=== PATIENT | female | born 1935 | race Caucasian/White ===

== ENCOUNTER → 2016-03-18 | Outpatient (CLI) | payer OTHER, BC ==
[2016-03-18 13:34] LABS: ESTIMATED AVERAGE GLUCOSE 143 mg/dl; HA1C FLAG Normal (Normal)
[2016-03-18 13:44] LABS: BLOOD UREA NITROGEN 21 mg/dl (7-18); CALCIUM 9.2 mg/dl (8.5-10.1); CARBON DIOXIDE 30 mmol/L (21-32); CHLORIDE 102 mmol/L (98-107); GLUCOSE 97 mg/dl (70-99); POTASSIUM 4.2 mmol/L (3.5-5.1); SODIUM 140 mmol/L (136-145)
== END | disposition home or self-care (01) ==
LOC: C.LABMFLN 07:34
PROVIDERS: ATTEND Family Medicine
DX: N18.9 Chronic kidney disease, unspecified (principal); E11.22 Type 2 diabetes mellitus with diabetic chronic kidney disease

== ENCOUNTER → 2016-06-23 | Outpatient (CLI) | payer OTHER, BC ==
--- NOTE | 2016-06-23 11:14 | DIAGNOSTIC IMAGING REPORT ---
PET/CT SKULL-THIGH CLINICAL HISTORY: ESOPHAGEAL CANCER COMPARISON STUDY: Outside PET scan dated 07/23/2015 FINDINGS: The patient was injected with 15.6 mCi of F 18 labeled FDG. Findings standard induction phase, PET/CT scanning was performed from the skull base to the upper thigh region. Within the neck, uptake is felt to be physiologic. Within the thorax, there is no pathologic mediastinal, hilar, or axillary becki activity. The patient appears to be status post a prior esophagectomy and gastric pull-up. There is stable increased activity at the level of the gastric antrum. There is no pathologic parenchymal activity. There is indeterminate 8 mm mixed solid and groundglass left apical pulmonary nodule. The solid component appears slightly larger than on prior studies dating back to May 2014. A low-grade carcinoma can therefore not be excluded. There is a stable right lower lobe 11 x 5 mm ovoid nodule. This second nodule is felt to be of very low suspicion. Within the abdomen, there is physiologic urinary tract and bowel activity. There is no pathologic becki activity. A pessary is visualized. Its there is no pathologic hepatic or adrenal activity. There is no pathologic skeletal activity. IMPRESSION: 1. Postsurgical changes of esophagectomy and gastric colon. 2. No evidence of pathologic becki activity 3. Stable mild increased activity at the level of the gastric antrum 4. Indeterminate 8 mm mixed solid and groundglass left apical pulmonary nodule. The solid component appears larger than in 2015. A small bronchogenic carcinoma is the diagnosis of exclusion. Electronically signed by: Alex Waddell M.D. 06/23/2016 11:13 AM Dictated Date/Time: 06/23/2016 11:02 AM
== END | disposition home or self-care (01) ==
LOC: C.PET 07:58
PROVIDERS: ATTEND Family Medicine
DX: C15.9 Malignant neoplasm of esophagus, unspecified (principal); R91.8 Other nonspecific abnormal finding of lung field

== ENCOUNTER → 2016-06-29 | Outpatient (CLI) | payer OTHER, BC ==
[~2016-06-29] MED LIST: REGADENOSON 0.4 MG/5 ML SYR ONE
--- NOTE | 2016-06-29 23:17 | MYOCARDIAL PERFUSION SCAN ---
ONE-DAY NUCLEAR MEDICINE TECHNETIUM-99M CARDIOLITE MYOCARDIAL PERFUSION SCAN CLINICAL HISTORY: The patient has a known history of coronary artery disease having undergone bypass surgery in 1990. This stress test is being performed because of a chest pain syndrome and exertional dyspnea. COMPARISON: None. TECHNIQUE: For the stress portion of the study, 33.7 mCi of Technetium 99 m Cardiolite IV was injected at 11:40 a.m. on 06/29/2016. Thirty minutes following the injection, imaging of the heart was performed in multiple projection. For the rest portion of the study, 10.6 mCi of Technetium 99 m Cardiolite was injected IV at 9:30 a.m. One hour following the injection, imaging of the heart was performed in the same projections. For the stress portion of the study, 0.4 mg of Lexiscan was injected intravenously as per protocol. The patient did not experience chest discomfort nor EKG changes. Following the study, the patient was hemodynamically stable without complaints. FINDINGS: The short axis, vertical long axis, horizontal long axis images were reviewed in detail. There is a small fixed defect in the proximal and mid inferior wall which is present at both stress and rest. This likely represents an old myocardial infarction (but diaphragmatic attenuation could not be fully excluded). Left ventricular systolic function is hyperdynamic with an ejection fraction of greater than 70%, but there are no obvious wall motion abnormalities. IMPRESSION: 1. 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 2. No Lexiscan induced chest pain. 3. No Lexiscan induced EKG changes. 4. Hyperdynamic left ventricular systolic function with an ejection fraction greater than 70% and no obvious wall motion abnormalities.
== END | disposition home or self-care (01) ==
LOC: C.NUCL 08:49
PROVIDERS: ATTEND Family Medicine
DX: I25.10 Atherosclerotic heart disease of native coronary artery without angina pectoris (principal); R94.31 Abnormal electrocardiogram [ECG] [EKG]

== ENCOUNTER → 2016-09-22 | Outpatient (CLI) | payer OTHER, BC ==
[2016-09-22 13:54] LABS: ESTIMATED AVERAGE GLUCOSE 140 mg/dl; HA1C FLAG Normal (Normal)
== END | disposition home or self-care (01) ==
LOC: C.LABMFLN 11:18
PROVIDERS: ATTEND Family Medicine
DX: E11.9 Type 2 diabetes mellitus without complications (principal)

== ENCOUNTER → 2016-09-28 | Outpatient (CLI) | payer OTHER, BC ==
--- NOTE | 2016-09-28 13:21 | DIAGNOSTIC IMAGING REPORT ---
(CHEST) THORAX WITHOUT CLINICAL HISTORY: 81 years-old Female presenting with R91.8 Multiple pulmonary nodules. TECHNIQUE: Multidetector CT imaging of the chest was performed without the use of intravenous contrast. IV contrast: None. A dose lowering technique was used consistent with the principles of ALARA (as low as reasonably achievable). COMPARISON: 06/17/2016. CT DOSE (mGy.cm): The estimated cumulative dose is 216.53 mGy.cm. 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 On soft tissue windows, calcified nodule in the right thyroid lobe. Subcentimeter mediastinal lymph nodes decreased in prominence since the prior exam, likely related to reactive. Evaluation of the nancy limited without intravenous contrast. Atherosclerosis of aortic arch and origins of the major branch vessels. Normal heart size. Coronary artery and aortic valve calcification. Evidence of coronary artery bypass. No pericardial or pleural effusion. Post surgical changes of esophagectomy with gastric pull-through. Coarse parenchymal calcification in the liver, nonspecific and likely indicating prior injury. Cholecystectomy clips. Hepatic arterial atherosclerotic disease. Prominent splenic atherosclerosis. On lung windows, right middle lobe solid 4 mm ulnar nodule, previously 4 mm (series 4 image 194) series. Right upper lobe solid 3 mm pulmonary nodule, previously 3 mm (series 4 image 140) bases. Minimal paramediastinal reticulation likely postsurgical change. Partially groundglass partially solid nodule at the left apex with the solid portion measuring 8 mm, previously 7 mm (series 4 image 42). Airways patent. On bone windows, degenerative changes of the spine. Well-healed sternotomy. IMPRESSION: 1. Multiple pulmonary nodules not significantly changed from prior exam. The largest nodule is a partially solid, partially some solid nodule with the solid portion measuring 8 mm. This remains the most suspicious nodule. Follow-up per Fleischner Society 2017 recommendations below. 2. Post surgical changes of coronary artery bypass and esophagectomy. Please refer to below summary of Fleischner Society 2017 recommendations for follow-up of incidental CT nodules (Marybeth Ellison et al. Guidelines for management of incidental pulmonary nodules detected on CT images: From the Fleischner Society 2017. Radiology 2017; 284: 228-243.) SOLID NODULES Single nodule; size <6 mm * Low risk patients: No routine follow-up * High risk patients: Optional CT at 12 months Single nodule; size 6-8 mm * Low risk patients: CT at 6-12 months, then consider CT at 18-24 months * High risk patients: CT at 6-12 months, then at 18-24 months Single nodule; size >8 mm * Either low or high risk patients: Considered CT at 3 months, PET/CT, or tissue sampling Multiple nodules; size <6 mm * Low risk patients: No routine follow up * High risk patients: Optional CT at 12 months Multiple nodules; size 6-8 mm * Low risk patients: CT at 3-6 months, then consider CT at 18-24 months * High risk patients: CT at 3-6 months, then at 18-24 months Multiple nodules; size >8 mm * Low risk patients: CT at 3-6 months, then consider at 18-24 months * High risk patients: CT at 3-6 months, then at 18-24 months Note: These guidelines apply to incidental nodules. These guidelines did not apply to patients younger than 35 years, immunocompromised patients, or patients with cancer. * Low risk patients: Minimal or absent history of smoking and/or other known risk factors * High risk patients: History of smoking, exposure to other carcinogens, emphysema, fibrosis, upper lobe location, family history of lung cancer, etc. * If a nodule up to 8 mm is partly solid or is ground glass further follow-up is required after 24 months to exclude possible slow growing adenocarcinoma SUBSOLID NODULES Single ground-glass nodule * Nodule size < 6 mm: No routine follow-up * Nodule size > or = 6 mm: CT at 6-12 months to confirm persistence, then CT every 2 years until 5 years Single part-solid nodule * Nodule size < 6 mm: No routine follow-up * Nodules size > or = 6 mm: CT at 3-6 months to confirm persistence. If unchanged and solid component remains < 6 mm, annual CT should be performed for 5 years Multiple nodules * Nodule size < 6 mm: CT at 3-6 months. If stable, consider CT at 2 and 4 years. * Nodules size > or = 6 mm: CT at 3-6 months. Subsequent management based on the most suspicious nodule(s) Electronically signed by: Juan R Woods M.D. 09/28/2016 1:19 PM Dictated Date/Time: 09/28/2016 1:13 PM
== END | disposition home or self-care (01) ==
LOC: C.CTS 12:52
PROVIDERS: ATTEND Family Medicine
DX: R91.8 Other nonspecific abnormal finding of lung field (principal); Z95.1 Presence of aortocoronary bypass graft

== ENCOUNTER → 2017-05-16 | Outpatient (CLI) | payer OTHER, BC ==
--- NOTE | 2017-05-16 17:11 | DIAGNOSTIC IMAGING REPORT ---
(CHEST) THORAX WITHOUT CLINICAL HISTORY: 82 years-old Female presenting with R91.8 Multiple pulmonary nodules. TECHNIQUE: Multidetector CT imaging of the chest was performed without the use of intravenous contrast. IV contrast: None. A dose lowering technique was used consistent with the principles of ALARA (as low as reasonably achievable). COMPARISON: 09/28/[address] from 06/17/2016. CT DOSE (mGy.cm): The estimated cumulative dose is 551.99 mGycm. 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 Cholecystectomy clips noted. On soft tissue windows, normal thyroid and thoracic inlet. No axillary, supraclavicular, or mediastinal lymphadenopathy. Evaluation of the nancy limited without intravenous contrast. Scattered subcentimeter mediastinal lymph nodes, nonspecific and unchanged. Atherosclerosis of the aorta. Normal heart size. Coronary artery calcification. Postsurgical changes of coronary artery bypass grafting suspected. Vessel patency cannot be confirmed given the lack of intravenous contrast. Mitral annular and aortic valve calcification also noted. No pericardial or pleural effusion. Post surgical changes of esophagectomy with gastric pull-through suspected. Calcification in the liver parenchyma may indicate prior infection, hemorrhage, or infarct. Prominent renal vascular calcification. On lung windows, the previously noted partially solid, partially groundglass nodule at the anterior left upper lobe now measures 6 mm and the solid portion, previously 8 mm (series 4 image 51). The configuration of this nodule is essentially unchanged from prior. Multiple solid pulmonary nodules noted elsewhere as on prior exam. Interval development of vague groundglass nodule in the superior segment of the lingula measuring 7 mm (series 4 image 114). This nodule is new from prior. Central airways patent. On bone windows, exaggerated thoracic kyphosis. Multilevel degenerative changes. Osteopenia. IMPRESSION: 1. Interval development of a 7 mm groundglass nodule in the lingula. Follow-up is indicated. 2. No significant change in the partially solid partially subsolid anterior left upper lobe nodule. The morphology of this nodule remains suspicious though the lack of increased size over nearly 12 months is reassuring. Follow-up as clinically indicated. [place] Society 2017 recommendations below. 3. Additional chronic findings as above. Please refer to below summary of Fleischner Society 2017 recommendations for follow-up of incidental CT nodules (H Terra et al. Guidelines for management of incidental pulmonary nodules detected on CT images: From the Fleischner Society 2017. Radiology 2017; 284: 228-243.) SOLID NODULES Single nodule; size < 6 mm * Low risk patients: No routine follow-up * High risk patients: Optional CT at 12 months Single nodule; size 6-8 mm * Low risk patients: CT at 6-12 months, then consider CT at 18-24 months * High risk patients: CT at 6-12 months, then at 18-24 months Single nodule; size > 8 mm * Either low or high risk patients: Considered CT at 3 months, PET/CT, or tissue sampling Multiple nodules; size < 6 mm * Low risk patients: No routine follow up * High risk patients: Optional CT at 12 months Multiple nodules; size 6-8 mm * Low risk patients: CT at 3-6 months, then consider CT at 18-24 months * High risk patients: CT at 3-6 months, then at 18-24 months Multiple nodules; size > 8 mm * Low risk patients: CT at 3-6 months, then consider at 18-24 months * High risk patients: CT at 3-6 months, then at 18-24 months SUBSOLID NODULES Single ground-glass nodule * Nodule size < 6 mm: No routine follow-up * Nodule size > or = 6 mm: CT at 6-12 months to confirm persistence, then CT every 2 years until 5 years Single part-solid nodule * Nodule size < 6 mm: No routine follow-up * Nodules size > or = 6 mm: CT at 3-6 months to confirm persistence. If unchanged and solid component remains < 6 mm, annual CT should be performed for 5 years Multiple nodules * Nodule size < 6 mm: CT at 3-6 months. If stable, consider CT at 2 and 4 years. * Nodules size > or = 6 mm: CT at 3-6 months. Subsequent management based on the most suspicious nodule(s) NOTE: These guidelines apply to incidental nodules. These guidelines do not apply to patients younger than 35 years, immunocompromised patients, or patients with cancer. * Low risk patients: Minimal or absent history of smoking and/or other known risk factors * High risk patients: History of smoking, exposure to other carcinogens, emphysema, fibrosis, upper lobe location, family history of lung cancer, etc. If a nodule up to 8 mm is partly solid or is ground glass, further follow-up is required after 24 months to exclude possible slow growing adenocarcinoma. Electronically signed by: Juan R Woods M.D. 05/16/2017 5:10 PM Dictated Date/Time: 05/16/2017 5:03 PM
== END | disposition home or self-care (01) ==
LOC: C.CTS 16:17
PROVIDERS: ATTEND Family Medicine
DX: R91.8 Other nonspecific abnormal finding of lung field (principal)

== ENCOUNTER → 2017-05-17 | Outpatient (CLI) | payer OTHER, BC ==
[2017-05-17 13:48] LABS: HEMOGLOBIN A1C 6.8 % (4.5-5.6)
== END | disposition home or self-care (01) ==
LOC: C.LABMFLN 09:41
PROVIDERS: ATTEND Family Medicine
DX: E11.9 Type 2 diabetes mellitus without complications (principal); E78.5 Hyperlipidemia, unspecified

== ENCOUNTER → 2017-08-25 | Outpatient (CLI) | payer OTHER, BC ==
[2017-08-25 13:35] LABS: HEMOGLOBIN A1C 6.8 % (4.5-5.6)
== END | disposition home or self-care (01) ==
LOC: C.LABMFLN 08:56
PROVIDERS: ATTEND Family Medicine
DX: E11.9 Type 2 diabetes mellitus without complications (principal)